=== PATIENT | female | born 1990 | race Caucasian/White ===

== ENCOUNTER 2021-06-02 11:54 | Emergency (ER) | payer SELFPAY ==
[2021-06-02] MEDS ORDERED: Acetaminophen 500 MG Tab PO ONE (12:13)
[2021-06-02 12:16] VITALS: BP 117/78; PULSE 78
--- NOTE | 2021-06-02 12:26 | EDM.PDOC ---
ED HPI GENERAL MEDICAL PROBLEM - General Chief Complaint: Lower Extremity Injury/Pain Stated Complaint: FELL OUT OF A TRUCK INJURED ANKLE Time Seen by Provider: 06/02/21 12:21 Source of Information: Reports: Patient History Limitations: Reports: No Limitations - History of Present Illness INITIAL COMMENTS - FREE TEXT/NARRATIVE: 30 y/o F c/o bilaterally ankle pn x 45 min after losing her balance adn rolling both of her ankles. The pt was at work and got out of a vehicle and then believes she may have stepped in a gravel depression that threw her off balance causing her ankle to roll, as the pt buckled she rolled her other ankle. Staff assisted pt to a car and drove her to the ER. SHe is 24 weeks and receiving care. She denies LOC, other injury, back pn, cp, abd pn, pelvic pn, neck pn, back pn, drugs, etoh. Bilateral Ankle Pain Score (Numeric/FACES): 5 - Related Data Allergies Allergy/AdvReac Type Severity Reaction Status Date / Time No Known Allergies Allergy Verified 06/02/21 12:08 Home Meds: Home Meds DULoxetine HCl [Cymbalta] 60 mg PO DAILY 04/03/15 [History] buPROPion HCl [Wellbutrin Xl] 300 mg PO DAILY 04/03/15 [History] Past Medical History - Past Health History Medical/Surgical History: Denies Medical/Surgical History HEENT History: Reports: None Cardiovascular History: Reports: None Respiratory History: Reports: None Gastrointestinal History: Reports: None [employer]GER [employer] History: Reports: Musculoskeletal History: Reports: None Neurological History: Reports: None Psychiatric History: Reports: Anxiety, Depression Endocrine/Metabolic History: Reports: None Hematologic History: Reports: None Immunologic History: Reports: None Oncologic (Cancer) History: Reports: None Dermatologic History: Reports: None - Infectious Disease History Infectious Disease History: Reports: None - Past Surgical History Head Surgeries/Procedures: Reports: None Female Surgical History: Reports: D&C Social & Family History - Family History Family Medical History: Unobtainable - Tobacco Use Tobacco Use Status *Q: Never Tobacco User - Caffeine Use Caffeine Use: Reports: Coffee, Soda - Recreational Drug Use Recreational Drug Use: No Review of Systems - Review of Systems Review Of Systems: Comprehensive ROS is negative, except as noted in HPI. ED EXAM, GENERAL - Physical Exam Exam: See Below Exam Limited By: No Limitations General Appearance: Alert Neck: Normal Inspection, Supple, Non-Tender, Full Range of Motion Respiratory/Chest: No Respiratory Distress, Lungs Clear, Normal Breath Sounds, No Accessory Muscle Use, Chest Non-Tender Cardiovascular: Normal Peripheral Pulses, Regular Rate, Rhythm, No Edema, No Gallop, No JVD, No Murmur, No Rub GI/Abdominal: Soft, Non-Tender Back Exam: Normal Inspection, Full Range of Motion, NT Extremities: Other (Bilateral lateral malleolar swelling and tenderness. Tenderness over bilateral medial malleolus. CMSX4) Neurological: Alert, Oriented, CN II-XII Intact, Normal Cognition, Normal Gait, Normal Reflexes, No Motor/Sensory Deficits Psychiatric: Normal Affect, Normal Mood Skin Exam: Warm, Dry, Intact, Normal Color, No Rash Course - Vital Signs Last Recorded V/S: Last Vital Signs Temp 98.8 F 06/02/21 12:09 Pulse 78 06/02/21 12:09 Resp 20 06/02/21 12:09 BP 117/78 06/02/21 12:09 Pulse Ox 99 06/02/21 12:09 - Orders/Labs/Meds Orders: Active Orders 24 hr Category Date Time Status Ankle Min 3V Rt [CR] Urgent Exams 06/02/21 12:14 Taken Meds: Medications Discontinued Medications Generic Name Dose Route Start Last Admin Trade Name Lisandro PRN Reason Stop Dose Admin Acetaminophen 1,000 mg 06/02/21 12:13 06/02/21 12:18 Acetaminophen 500 Mg Tab PO 06/02/21 12:14 1,000 mg ONETIME ONE Administration - Re-Assessments/Exams Free Text/Narrative Re-Assessment/Exam: 06/02/21 13:14 I discussed the pts exam and xrays with her and informed her there is no fractures noted on the Xrays. She believes she will be able to ambulate on her R ankle with crutches. I will test her ability to bear weight o her R leg and if she is successful I will splint the L ankle and discharge her with crutches. I will have her follow up with her PCP next week if symptoms do not improve. Departure - Departure Time of Disposition: 13:17 Disposition: Home, Self-Care 01 Condition: Fair Clinical Impression: Ankle sprain Qualifiers: Encounter type: initial encounter Involved ligament of ankle: unspecified ligament Laterality: unspecified laterality Qualified Code(s): S93.409A - Sprain of unspecified ligament of unspecified ankle, initial encounter - Discharge Information *PRESCRIPTION DRUG MONITORING PROGRAM REVIEWED*: Not Applicable *COPY OF PRESCRIPTION DRUG MONITORING REPORT IN PATIENT JANES: Not Applicable Instructions: Ankle Sprain, [id number] Forms: ED Department Discharge Additional Instructions: Ice elevate and rest your injuries. Use tylenol for pain as needed. Follow up with your primary care facility next week if your symptoms do not improve. If any new symptoms or concerns develop contact your primary care facility or return to the ER. Sepsis Event Note (ED) - Evaluation Sepsis Screening Result: No Definite Risk - Focused Exam Vital Signs: Vital Signs Temp Pulse Resp BP Pulse Ox 06/02/21 12:09 98.8 F 78 20 117/78 99 - My Orders Last 24 Hours: My Active Orders 06/02/21 12:14 Ankle Min 3V Rt [CR] Urgent - Assessment/Plan Last 24 Hours: My Active Orders 06/02/21 12:14 Ankle Min 3V Rt [CR] Urgent
--- NOTE | 2021-06-02 13:10 | CR ---
EXAMINATION: Ankle Min 3V Lt and Rt ankles SEX: Female AGE: 30 years CLINICAL HISTORY: 30-year-old gravid female with bilateral ankle pain. INTERPRETATION: 1. Bilateral ankle swelling, particularly over the lateral malleolus (R>L). Sprain? 2. Symmetric ankle mortise joint spacing without degenerative arthritic change. 3. *No fracture or dislocation either ankle. Bones of the midfoot and hindfoot unremarkable. 4. Homogeneous normal bone mineral density. No pathologic skeletal lesion. 5. No foreign bodies.
== END 2021-06-02 13:51 | disposition home or self-care (01) ==
LOC: DL.ED 11:54
DX: S93.401A Sprain of unspecified ligament of right ankle, initial encounter (principal); S93.402A Sprain of unspecified ligament of left ankle, initial encounter; X50.1XXA Overexertion from prolonged static or awkward postures, initial encounter; Y92.89 Other specified places as the place of occurrence of the external cause; Y99.0 Civilian activity done for income or pay
CPT/HCPCS: 73610-LT; 73610-RT; 99283-25; A9270-GY